=== PATIENT | male | born 1985 ===

== ENCOUNTER 2022-07-16 20:13 | Emergency (ER) | payer SELFPAY ==
--- NOTE | 2022-07-16 21:43 | RAD REPORT ---
EXAM DESCRIPTION: CT - Head C Spine Cap Wo Con - 07/16/2022 9:25 pm CLINICAL HISTORY: Trauma, head and neck injury. Chest, abdomen and pelvis pain. neck and lower back pain COMPARISON: <Comparisons> TECHNIQUE: CT head without contrast. CT cervical spine without contrast with coronal and sagittal reformatted images. CT chest, abdomen and pelvis without contrast with coronal and sagittal reformatted images of the spi ne. All CT scans are performed using dose optimization technique as appropriate and may include automated exposure control or mA/KV adjustment according to patient size. FINDINGS: CT HEAD WITHOUT CONTRAST: No intracranial hemorrhage, hydrocephalus or extra-axial fluid collection. No areas of brain edema o r midline shift. The paranasal sinuses and mastoids are clear. The calvarium is intact. CT CERVICAL SPINE WITHOUT CONTRAST: No fracture or subluxation. The prevertebral soft tissues are normal in thickness. CT CHEST, ABDOMEN, PELVIS WITHOUT CONTRAST: NOTE: Lack of contrast is a significant limitation in the assessment of trauma related findings. Spec ifically, solid organ, vascular and bowel evaluation is significantly limited. The lungs are clear.No pneumothorax or pericardial/pleural fluid. No evidence of intra-abdominal visceral injury, free fluid or free air is seen within the above detai led limitations. No concerning pelvic findings. No fractures. Moderate spondylosis at L5-S1. IMPRESSION: No acute finding is demonstrated.
--- NOTE | 2022-07-16 22:07 | EDPHYS ---
Physician Documentation [facility] Name: Ricky Griffin Age: 36 yrs Sex: Male : 1985 Arrival Date: 07/16/2022 Time: 20:13 Bed 23 Private MD: ED Physician Santiago Pleitez HPI: 07/16 20:29 This 36 yrs old Male presents to ER via [employer] with complaints of Neck and kdr back pain. 20:29 Patient arrived in police custody complaining of neck and low back pain. He is very kdr vague about the pain but says it started in the last 45 minutes or so. He does not describe any particular mechanism. Patient is accompanied by 3 police officers and according to the officers had been combative prior to arrival. At the time of my exam the patient is cooperative. Does not appear in any acute distress. He does not require emergent intervention at this moment. Severity of symptoms: At their worst the symptoms were mild in the emergency department the symptoms are unchanged. The patient has not experienced similar symptoms in the past. The patient has not recently seen a physician. Historical: - Allergies: 22:09 No Known Allergies; kd3 - Immunization history:: Adult Immunizations not up to date. - Social history:: Smoking status: unknown. ROS: 20:29 Constitutional: Negative for fever, chills, and weight loss, Eyes: Negative for injury, kdr pain, redness, and discharge, Neck: Negative for injury, pain, and swelling, Cardiovascular: Negative for chest pain, palpitations, and edema, Respiratory: Negative for shortness of breath, cough, wheezing, and pleuritic chest pain, Abdomen/GI: Negative for abdominal pain, nausea, vomiting, diarrhea, and constipation. Exam: 22:04 Constitutional: This is a well developed, well nourished patient who is awake, alert, kdr and in no acute distress. Head/Face: Normocephalic, atraumatic. Eyes: Pupils equal round and reactive to light, extra-ocular motions intact. Lids and lashes normal. Conjunctiva and sclera are non-icteric and not injected. Cornea within normal limits. Periorbital areas with no swelling, redness, or edema. Neck: Trachea midline, no thyromegaly or masses palpated, and no cervical lymphadenopathy. Supple, full range of motion without nuchal rigidity, or vertebral point tenderness. No Meningismus. Chest/axilla: Normal chest wall appearance and motion. Nontender with no deformity. No lesions are appreciated. Cardiovascular: Regular rate and rhythm with a normal S1 and S2. No gallops, murmurs, or rubs. Normal PMI, no JVD. No pulse deficits. Respiratory: Lungs have equal breath sounds bilaterally, clear to auscultation and percussion. No rales, rhonchi or wheezes noted. No increased work of breathing, no retractions or nasal flaring. Abdomen/GI: Soft, non-tender, with normal bowel sounds. No distension or tympany. No guarding or rebound. No evidence of tenderness throughout. Skin: Warm, dry with normal turgor. Normal color with no rashes, no lesions, and no evidence of cellulitis. MS/ Extremity: Pulses equal, no cyanosis. Neurovascular intact. Full, normal range of motion. Neuro: Awake and alert, GCS 15, oriented to person, place, time, and situation. Cranial nerves II-XII grossly intact. Motor strength 5/5 in all extremities. Sensory grossly intact. Cerebellar exam normal. Normal gait. Psych: Awake, alert, with orientation to person, place and time. Behavior, mood, and affect are within normal limits. 22:04 Neck: External neck: Patient has very minimal lateral right-sided neck pain. Primarily with palpation. 22:04 Back: Patient has pain in the right flank area and right CVA area.. Vital Signs: 22:08 BP 132 / 84; Pulse 78; Resp 19; Pulse Ox 99% on R/A; kd3 MDM: 22:04 Data reviewed: vital signs, nurses notes, lab test result(s), radiologic studies. ED kdr course: Patient was stable in the emergency department and without any evidence of acute illness or injury beyond what was noted previously. Patient was discharged in stable and satisfactory condition. He was happy with the care provided the plan for discharge and follow-up. 22:06 Patient medically screened. kdr 07/16 20:28 Order name: CT Traumagram (Head C Spine CAP wo con); Complete Time: 22:02 kdr Administered Medications: 22:08 Drug: Ibuprofen PO 800 mg Route: PO; kd3 22:09 Follow up: Response: No adverse reaction kd3 Disposition Summary: 07/16/22 22:06 Discharge Ordered Location: Home kdr Problem: new kdr Symptoms: have improved kdr Condition: Stable kdr Diagnosis - Right lateral neck pain and low back/right flank pain kdr Followup: kdr - With: Private Physician - When: 2 - 3 days - Reason: If symptoms return, Further diagnostic work-up, Recheck today's complaints, Continuance of care, Re-evaluation by your physician Discharge Instructions: - Discharge Summary Sheet kdr - Acute Back Pain, Adult kdr - Cervical Sprain, [id number] kdr Forms: - Medication Reconciliation Form kdr - Thank You Letter kdr Signatures: Dispatcher [employer] Santiago Rosales MD MD kdr Leena Sapp RN RN kd3
--- NOTE | 2022-07-16 22:07 | ER ---
Nurse's Notes [facility] Name: Ricky Griffin Age: 36 yrs Sex: Male : 1985 Arrival Date: 07/16/2022 Time: 20:13 Bed 23 Private MD: Diagnosis: Right lateral neck pain and low back/right flank pain Presentation: 07/16 20:20 Chief complaint: Patient states: I am hurting in my neck and my back. I need to get kd3 checked out. Coronavirus screen: Vaccine status:. Ebola Screen: No symptoms or risks identified at this time. Initial Sepsis Screen: Does the patient meet any 2 criteria? No. Patient's initial sepsis screen is negative. Does the patient have a suspected source of infection? No. Patient's initial sepsis screen is negative. Risk Assessment: Do you want to hurt yourself or someone else? Patient reports no desire to harm self or others. Onset of symptoms was July 16, 2022. 20:20 Method Of Arrival: Law Enforcement: [place] [employer] kd3 20:20 Acuity: RUPINDER 4 kd3 Triage Assessment: 20:20 General: Appears in no apparent distress. Behavior is agitated. Pain: Complains of pain kd3 in back and neck. Neuro: Level of Consciousness is awake, alert, obeys commands, Oriented to person, place, time, situation. Musculoskeletal: Circulation, motion, and sensation intact. Historical: - Allergies: 22:09 No Known Allergies; kd3 - Immunization history:: Adult Immunizations not up to date. - Social history:: Smoking status: unknown. Screenin:08 [facility] ED Fall Risk Assessment (Adult) History of falling in the last 3 months, kd3 including since admission No falls in past 3 months (0 pts). Abuse screen: Denies threats or abuse. Denies injuries from another. Nutritional screening: No deficits noted. Tuberculosis screening: No symptoms or risk factors identified. Assessment: 22:08 General: Appears in no apparent distress. Behavior is calm, cooperative. Neuro: Level kd3 of Consciousness is awake, alert, obeys commands, Oriented to person, place, time, situation. Vital Signs: 22:08 BP 132 / 84; Pulse 78; Resp 19; Pulse Ox 99% on R/A; kd3 ED Course: 20:15 Patient arrived in ED. [email or web address] 20:20 Santiago Pleitez MD is Attending Physician. kdr 20:20 Arm band placed on right wrist. kd3 20:21 Triage completed. kd3 21:27 CT Traumagram (Head C Spine CAP wo con) In Process Unspecified. EDMS 22:09 Patient has correct armband on for positive identification. kd3 22:09 No provider procedures requiring assistance completed. Patient did not have IV access kd3 during this emergency room visit. Administered Medications: 22:08 Drug: Ibuprofen PO 800 mg Route: PO; kd3 22:09 Follow up: Response: No adverse reaction kd3 Medication: 22:09 VIS not applicable for this client. kd3 Outcome: 22:06 Discharge ordered by . kdr 22:09 Discharged to home ambulatory. kd3 22:09 Condition: stable 22:09 Discharge instructions given to patient, Instructed on discharge instructions, follow up and referral plans. Demonstrated understanding of instructions, follow-up care. 22:11 Patient left the ED. kd3 Signatures: Dispatcher [employer] EDIL Santiago Pleitez MD MD [facility] Emy Vallejo [email or web address] Leena Sapp, RN RN kd3
[2022-07-16] MEDS ORDERED: IBUPROFEN 400 MG TAB ONE (22:11)
[2022-07-16 23:08] VITALS: BP 132/84; O2SAT 99
== END 2022-07-16 22:11 | disposition home or self-care (01) ==
LOC: ER 20:13 → EDBD 20:13 → ER 22:11
DX: M54.2 Cervicalgia (principal); M54.50 Low back pain, unspecified; R10.9 Unspecified abdominal pain
CPT/HCPCS: 70450; 71250; 72125; 99283